=== PATIENT | female | born 1960 ===

== ENCOUNTER 2022-08-03 13:17 | Emergency (ER) | payer OTHER ==
[~2022-08-03] VITALS: Ht 160 cm; Wt 68.0 kg
[2022-08-03] MEDS ORDERED: BISOPROLOL-HCT1 EACH PO (13:46)
[2022-08-03] MEDS ORDERED: LAMIVUDINE300 MG PO (13:47)
[2022-08-03] MEDS ORDERED: TIVICAY50 MG PO (13:48)
== END 2022-08-03 16:22 | disposition left against medical advice (07) ==
LOC: ER 13:17
DX: Z53.21 Procedure and treatment not carried out due to patient leaving prior to being seen by health care provider (principal)